=== PATIENT | male | born 1990 | race African-American/Black ===

== ENCOUNTER 2018-09-14 03:20 | Emergency (ER) | payer OTHER ==
[~2018-09-14] VITALS: Ht 172.7 cm; Wt 70.5 kg
[2018-09-14 03:24] VITALS: Ht 172.7 cm; Wt 70.5 kg
[2018-09-14] MEDS ORDERED: CATAPRES0.3 MG PO (03:26)
[2018-09-14] MEDS ORDERED: OMEPRAZOLE40 MG PO (03:27)
[2018-09-14] MEDS ORDERED: SENSIPAR90 MG PO (03:27)
[2018-09-14] MEDS ORDERED: NAPROSYN500 MG (03:27)
[2018-09-14] MEDS ORDERED: HYDRALAZINE HCL25 MG PO (03:28)
[2018-09-14] MEDS ORDERED: NEPHROCAPS SOFTG1 MG PO (03:28)
[2018-09-14] MEDS ORDERED: RENVELA800 MG PO (03:28)
[2018-09-14] MEDS ORDERED: COREG25 MG PO (03:28)
[2018-09-14 03:49] LABS: BASOPHILS 0.5 % (0-2); EOSINOPHILS 5.4 % (0-7); HEMATOCRIT 39.1 % (42.0-54.0); HEMOGLOBIN 12.8 g/dL (13.5-17.5); IMMATURE GRANULOCYTES 0.1 % (0-5); LYMPHOCYTES 30.4 % (15-50); MCH 22.5 pg (26.0-34.0); MCHC 32.7 g/dL (31.0-37.0); MCV 68.8 fL (80.0-100.0); MONOCYTES 8.6 % (2-11); PLATELET COUNT 193 10x3/uL (130-400); RBC 5.68 10x6/uL (4.20-6.10); RDW 17.8 % (11.5-14.5); WBC 8.3 10x3/uL (4.8-10.8)
[2018-09-14 04:01] LABS: ALBUMIN 3.7 g/dL (3.4-5.0); ALKALINE PHOSPHATASE 249 U/L (46-116); ALT (SGPT) 19 U/L (10-68); BILIRUBIN - TOTAL 0.32 mg/dL (0.2-1.3); CALC OSMOLALITY 280 mosm/kg (275-300); CALCIUM 9.2 mg/dL (8.5-10.1); CARBON DIOXIDE 21.8 mmol/L (21.0-32.0); CHLORIDE - SERUM 99 mmol/L (98-107); GLUCOSE 94 mg/dL (74-106); POTASSIUM - SERUM 4.3 mmol/L (3.5-5.1); SODIUM 136 mmol/L (136-145); UREA NITROGEN 39 mg/dL (7-18); eGFR NON AFRICAN AMERICAN 5 mL/min (90-120)
[2018-09-14 04:04] LABS: APTT 29.2 SECONDS (22.8-39.4); INR 1.06 (0.85-1.17); PROTIME 13.3 SECONDS (11.6-15.0)
[2018-09-14 04:11] LABS: CKMB 0.9 U/L (0.0-3.6); CREATINE KINASE 330 UL (21-232); MAGNESIUM - SERUM 2.5 mg/dL (1.8-2.4)
[2018-09-14 04:18] LABS: TROPONIN-I < 0.017 ng/mL (0.000-0.060)
[2018-09-14 04:45] VITALS: BP 150/88
== END 2018-09-14 04:45 | disposition home or self-care (01) ==
LOC: D.ER 03:20
PROVIDERS: Emergency Medicine
DX: R07.89 Other chest pain (principal); N18.6 End stage renal disease